=== PATIENT | male | born 1940 | race Caucasian/White ===

== ENCOUNTER → 2019-04-17 | Day surgery (SDC) | payer OTHER ==
--- NOTE | 2019-04-23 19:17 | PATH ---
Cytology Non-Gynecological Report Patient Name: SHAHNAZ FINN [facility]. Rec. #: [id number] /Age/Gender: 1940 (Age: 78) / M Account: [id number] Location: RADIOLOGY INTER Taken: 04/17/2019 Received: 04/17/2019 Reported: 04/23/2019 Physicians: Ishmael Mahan M.D. Specimen(s) Received THYROID FNA Clinical History Left, 1.68 x 1.09 x 1.22 cm Final Diagnosis THYROID, LEFT, FINE NEEDLE ASPIRATION: SATISFACTORY FOR EVALUATION. BETHESDA CLASS II: BENIGN. CYTOLOGIC FINDINGS ARE CONSISTENT WITH A BENIGN FOLLICULAR NODULE. SMALL FOLLICULAR CELLS IN A BACKGROUND OF THIN COLLOID AND FEW LYMPHOCYTES PRESENT. Comment: Presence of lymphocytes raise the possibility of chronic lymphocytic thyroiditis. Suggest clinical/radiological and serologic correlation. Electronically Signed Bere Salter M.D. Gross Description Received are two direct smears, one of which is air-dried and Diff-Quik stained, and one of which is alcohol fixed and Pap stained. Also received is 20 ml of bloody formalin from which one cellblock is prepared.
== END | disposition home or self-care (01) ==
LOC: JRADIR 09:20
PROVIDERS: ATTEND Internal Medicine Endocrinology, Diabetes & Metabolism
PROC: 0G9G3ZX Drainage of Left Thyroid Gland Lobe, Percutaneous Approach, Diagnostic (ICD-10-PCS; principal; 2019-04-17)
DX: E04.1 Nontoxic single thyroid nodule (principal)
CPT/HCPCS: 76942; 88173; 88305-TC

== ENCOUNTER 2019-08-27 07:23 | Day surgery (SDC) | payer OTHER ==
[~2019-08-27 07:23] MED LIST: ACETAMINOPHEN 325 MG TABLET (FP) PO PRN; CYCLOPENTOLATE HCL 1% OPHTH SOLN 2 ML BOTTLE OP SCH; KETOROLAC TROMETHAMINE 0.5% EYE DROP 1 DROP DROPS OP SCH; OFLOXACIN 0.3% OPHTHALMIC SOLUTION 5 ML BOTTLE OP SCH; PHENYLEPHRINE 2.5% OPHTH SOLN 15 ML BOTTLE OP SCH; TROPICAMIDE 1% OPHTH SOLN 15 ML BOTTLE OP SCH
[2019-08-27 07:39] VITALS: BMI 23.6
[2019-08-27] MEDS ORDERED: PHENYLEPHRINE 2.5% OPHTH SOLN 15 ML BOTTLE ONE (07:42)
[2019-08-27] MEDS ORDERED: OFLOXACIN 0.3% OPHTHALMIC SOLUTION 5 ML BOTTLE ONE (07:42)
[2019-08-27] MEDS ORDERED: TROPICAMIDE 1% OPHTH SOLN 15 ML BOTTLE ONE (07:42)
[2019-08-27] MEDS ORDERED: KETOROLAC TROMETHAMINE 0.5% EYE DROP 1 DROP DROPS ONE (07:42)
[2019-08-27] MEDS ORDERED: CYCLOPENTOLATE HCL 1% OPHTH SOLN 2 ML BOTTLE ONE (07:42)
[2019-08-27] MEDS ORDERED: ACETAMINOPHEN 325 MG TABLET (FP) PO PRN (07:49)
[2019-08-27] MEDS ORDERED: TROPICAMIDE 1% OPHTH SOLN 15 ML BOTTLE OD ONE ×3 (08:00→08:15)
[2019-08-27] MEDS ORDERED: PHENYLEPHRINE 2.5% OPHTH SOLN 15 ML BOTTLE OD ONE ×3 (08:00→08:15)
[2019-08-27] MEDS ORDERED: OFLOXACIN 0.3% OPHTHALMIC SOLUTION 5 ML BOTTLE OD ONE ×3 (08:00→08:15)
[2019-08-27] MEDS ORDERED: KETOROLAC TROMETHAMINE 0.5% EYE DROP 1 DROP DROPS OD ONE ×3 (08:00→08:15)
[2019-08-27] MEDS ORDERED: CYCLOPENTOLATE HCL 1% OPHTH SOLN 2 ML BOTTLE OD ONE ×3 (08:00→08:15)
[2019-08-27 08:06] VITALS: PULSE 62
[2019-08-27] MEDS ORDERED: MIDAZOLAM HCL 2 MG/2 ML SINGLE DOSE VIAL ONE (08:12)
[2019-08-27] MEDS ORDERED: DESFLURANE GAS 240 ML BOTTLE IH ONE (08:37)
[2019-08-27] MEDS ORDERED: SEVOFLURANE 250 ML BTL ONE (08:37)
[2019-08-27] MEDS ORDERED: LIDOCAINE HCL/PF 2% SDV 5ML VIAL ONE ×2 (09:16→13:46)
[2019-08-27] MEDS ORDERED: PROPOFOL 20 ML ONE (09:16)
[2019-08-27] MEDS ORDERED: BUPIVACAINE HCL/PF 0.75% 10 ML VIAL PNB ONE (09:23)
[2019-08-27] MEDS ORDERED: LIDOCAINE HCL/PF 2% SDV 5ML VIAL PNB ONE (09:23)
[2019-08-27] MEDS ORDERED: LIDOCAINE HCL 1% PRESERVATIVE FREE - 30ML VIAL IO ONE (09:38)
[2019-08-27] MEDS ORDERED: CHONDROITIN SU A/HYALUR SOD 1 KIT IO ONE (09:39)
[2019-08-27] MEDS ORDERED: EPINEPHrine/PF 1 MG/1 ML (1:1,000) AMPULE SQ ONE (09:40)
[2019-08-27 10:39] VITALS: TEMP 97.5
[2019-08-27] MEDS ORDERED: ACETAMINOPHEN 325 MG TABLET (FP) ONE (10:54)
[2019-08-27] MEDS ORDERED: LIDOCAINE HCL/PF 1% SDV 5ML VIAL ONE (13:46)
[2019-08-27] MEDS ORDERED: TRYPAN BLUE 0.5 ML DISP.SYRIN ONE (13:46)
[2019-08-27] MEDS ORDERED: BUPIVACAINE HCL/PF 0.75% 10 ML VIAL ONE (13:46)
[2019-08-27] MEDS ORDERED: EPINEPHrine/PF 1 MG/1 ML (1:1,000) AMPULE ONE (13:46)
[2019-08-27] MEDS ORDERED: CHONDROITIN SU A/HYALUR SOD 1 KIT ONE (13:53)
--- NOTE | 2019-08-27 13:57 | SPEC ---
DATE OF OPERATION: 08/27/2019 OPERATION: Phacoemulsification of right cataract with posterior chamber intraocular lens implantation, right eye, lens used [id number], 19.0 Diopter power, Serial No. [id number]. PREOPERATIVE DIAGNOSIS: Cataract, right eye. POSTOPERATIVE DIAGNOSIS: Cataract, right eye. SURGEON: Ana Laura Brito M.D. ANESTHESIA: Peribulbar/Modified Van Lint/MAC. COMPLICATIONS: None. PROCEDURE: The patient was brought to the operating room and correctly identified along with the operative site and a correct intraocular lens spear. The patient was then given a peribulbar block under sedation with 5 mL of a 1:1 mixture of 2% Lidocaine and 0.5% Bupivacaine. Two to 3 mL of the same mixture was given as a modified Van Lint block. The eye was then prepped and draped in the usual sterile fashion including 5% Betadine solution in the conjunctival sac and an eyelid drape. An eyelid speculum was then placed into the eye. A paracentesis port was created. Viscoelastic was injected to inflate the anterior chamber. A temporal clear corneal wound was created. A continuous circular capsulorrhexis was performed. The nucleus was then hydro-dissected and removed phacoemulsification via the divide-and- conquer approach. Floppy iris was noted during the nuclear disassemly and removal but care was made to keep the phaco tip in the iris plane. The remaining cortical material was irrigated and aspirated from the eye. Viscoelastic was injected to inflate the capsular bag. The lens was injected into the capsular bag. Viscoelastic was then irrigated and aspirated from the eye. The intraocular lens was noted to be well centered and covered by the anterior capsular border. All wounds were found to be watertight. Topical Vancomycin was given. The eye patch and shield were placed. The patient was discharged from the operating room in stable condition. ANA LAURA BRITO M.D. [id number] MTDD
[2019-08-27 15:38] VITALS: BP 146/73
== END 2019-08-27 11:25 | disposition home or self-care (01) ==
LOC: JASU-SURG 07:23
PROVIDERS: ATTEND Ophthalmology
PROC: 08RJ3JZ Replacement of Right Lens with Synthetic Substitute, Percutaneous Approach (ICD-10-PCS; principal; 2019-08-27 09:00)
DX: H26.9 Unspecified cataract (principal); E11.9 Type 2 diabetes mellitus without complications; Z79.84 Long term (current) use of oral hypoglycemic drugs; I25.10 Atherosclerotic heart disease of native coronary artery without angina pectoris
CPT/HCPCS: 82962

== ENCOUNTER 2020-07-14 14:08 | Inpatient (IN) | payer OTHER ==
[2020-07-14 14:28] VITALS: TEMP 97.3; BMI 24.1
[2020-07-14 14:53] LABS: BASO % 1.6 % (0-2.0); EOS % 3.2 % (0-4.5); HEMATOCRIT 26.2 % (35.4-49); LYMPH % 30.3 % (8-40); MCH 21.4 pg (25.7-33.7); MCHC 30.7 g/dl (32.0-35.9); MEAN CELL VOLUME 69.5 fl (80-96); MEAN PLT VOLUME 9.5 fl (7.5-11.1); MONO % 7.3 % (3.8-10.2); NEUT % 57.6 % (42.8-82.8); PLATELET COUNT 262 K/MM3 (134-434); RBC 3.77 M/mm3 (4.00-5.60); RDW 16.6 % (11.9-15.9); WHITE BLOOD COUNT 4.9 K/mm3 (4.0-10.0)
--- NOTE | 2020-07-14 14:54 | PDOC ---
History of Present Illness - General Chief Complaint: Pain, Acute Stated Complaint: Weakness - History of Present Illness Initial Comments: 80 yo male with PMH of HTN, HLD, DM, CAD, PR (s/p stents), GERD, Hyperthyroidism, VitD, BPH. He has had C4/C5 procedure done (unknown pathology at the moment). Pt BIBEMS from home with a 1 week history of weakness. Family says that he feels lethargic and had a decreased level of activity. He endorses headache, right arm and leg pain/weakness, right arm tingling. He has had a normal appetite, denies nvd and abd pain. He denies fevers, chills, visual disturbance, gait changes, cp, sob, dysuria, hematuria, bloody stool. Pt speaks polish only and translation is done via myself and son. EMS noted stable vitals, 1st degree AV block. 07/14/20 15:07 Past History - Medical History Allergies/Adverse Reactions: Allergies Allergy/AdvReac Type Severity Reaction Status Date / Time No Known Drug Allergies Allergy Verified 08/27/19 07:30 Home Medications: Ambulatory Orders Aspirin [ASA -] 81 mg PO DAILY 06/09/15 Atorvastatin Calcium 80 mg PO DAILY 08/27/19 Metoprolol Succinate 12.5 mg PO BID 08/27/19 Tamsulosin HCl [Flomax -] 0.4 mg PO DAILY 08/27/19 Tramadol HCl 50 mg PO PRN PRN 08/27/19 metFORMIN HCL [Metformin HCl] 500 mg PO DAILY 08/27/19 Ezetimibe 0 mg PO DAILY 07/14/20 Olmesartan Medoxomil [Benicar] 0 mg PO DAILY 07/14/20 Pantoprazole Sodium [Protonix] 0 mg PO DAILY 07/14/20 Vit D3-Vit K/Berberine/Hops [Ostera Tablet] 1 each PO DAILY 07/14/20 Anemia: No Asthma: No Cancer: No Cardiac Disorders: Yes (PR / 2 STENTS) CVA: No COPD: No CHF: No Dementia: No Diabetes: Yes (BORDERLINE) GI Disorders: Yes (COLONOSCOPY/EGD - "bacteria" on antb x 2wks) Disorders: No HTN: Yes Hypercholesterolemia: Yes Liver Disease: Yes (liver enzymes slightly elevted) Seizures: (?x1 after angioplasty 2013) Thyroid Disease: Yes (HYPO.) - Surgical History Abdominal Surgery: No Appendectomy: No Cardiac Surgery: Yes (STENTS X 2.) Cholecystectomy: No Lung Surgery: No Neurologic Surgery: No Orthopedic Surgery: No - Immunization History Immunization Up to Date: No - Psycho-Social/Smoking History Smoking History: Never smoked Have you smoked in the past 12 months: No - Substance Abuse Hx (Audit-C & DAST Scrn) How often the patient has a drink containing alcohol: Never Score: In Men: 4 or > Positive; In Women: 3 or > Positive: 0 Screen Result (Pos requires Nsg. Audit-10AR): Negative In the last yr the pt used illegal drug/Rx for NonMed reason: No Score: Yes response is considered Positive: 0 Screen Result (Positive result requires Nsg. DAST-10): Negative Review of Systems - Review of Systems Constitutional: Yes: Malaise, Weakness. No: Chills, Fever HEENTM: No: Recent change in vision, Double Vision Respiratory: No: Cough, Shortness of Breath Cardiac (ROS): No: Chest Pain, Edema, Irregular Heart Rate, Lightheadedness, Syncope, Chest Tightness ABD/GI: No: Constipated, Diarrhea, Nausea, Vomiting : No: Burning, Dysuria, Flank Pain, Hematuria Musculoskeletal: Yes: Other (right arm weakness/pain/tingling ) Integumentary: No: Bruising, Dryness, Erythema, Lesions Neurological: Yes: Headache, Numbness, Tingling, Weakness. No: Unsteady Gait, Ataxia Psychiatric: No: Anxiety, Depression, Mood Swings Endocrine: No: Intolerance to Cold, Intolerance to Heat *Physical Exam - Vital Signs Last Vital Signs Temp Pulse Resp BP Pulse Ox 97.3 F L 96 H 12 107/53 L 100 07/14/20 14:25 07/14/20 14:25 07/14/20 14:25 07/14/20 14:25 07/14/20 14:25 - Physical Exam General Appearance: Yes: Appropriately Dressed. No: Apparent Distress HEENT: positive: EOMI, LEANDER, Normal Voice Neck: negative: Tender, Rigid Respiratory/Chest: positive: Lungs Clear, Normal Breath Sounds. negative: Respiratory Distress Cardiovascular: positive: Regular Rhythm, Regular Rate, S1, S2. negative: Edema, JVD, Murmur Gastrointestinal/Abdominal: positive: Flat, Soft. negative: Tender Musculoskeletal: positive: Other (right upper extremity weakness). negative: CVA Tenderness Extremity: positive: Normal Inspection, Normal Range of Motion, Other (Pain with right shoulder movement). negative: Coldness, Cyanosis Integumentary: positive: Normal Color, Dry, Warm Neurologic: positive: security screener II-XII NML intact, Fully Oriented, Alert, Normal Mood/Affect ED Treatment Course - LABORATORY CBC & Chemistry Diagram: 07/14/20 14:30 07/14/20 14:30 Medical Decision Making - Medical Decision Making 80 yo male with PMH of HTN, HLD, DM, CAD, PR (s/p stents), GERD, Hyperthyroidism, VitD, BPH. He has had C4/C5 procedure done (unknown pathology at the moment). Pt presents with 1 week hx of weakness, lethargy, right arm pain/numbness/tingling. VS: afebrile, hypotensive 108/67 PE: right arm pain/tingling/weakness Heart score =5 EKG: sinus rhythm, rate 63, normal axis, prolonged pr (226, 1st degree av block), normal QRS (76), normal QTc (425) Labs: - Microcytic Anemia (Hb 8.0, baseline ~11-12) (MCV 68) - ordered type and screen - not currently transfusing - stool occult blood test, negative, however very little stool was in the rectal vault - Creatinine 1.7 (at baseline) - TSH 0.16, Free T4 1.26 - Troponin negative - UA/UC pending - Covid pending Images - CXR: no acute chest pathology - CT Head: no acute intracranial pathology Impression: symptomatic microcytic anemia of unknown origin 07/14/20 17:21 07/14/20 18:09 Discharge - Discharge Information Problems reviewed: Yes Clinical Impression/Diagnosis: Weakness Anemia Qualifiers: Anemia type: unspecified type Qualified Code(s): D64.9 - Anemia, unspecified - Admission Yes - Follow up/Referral Referrals: Donaldo Ko MD [Primary Care Provider] - - Patient Discharge Instructions - Post Discharge Activity
[2020-07-14 15:01] LABS: INR 0.98 (0.83-1.09); PROTHROMBIN TIME (PATIENT) 11.9 SEC (9.7-13.0)
[2020-07-14 15:04] LABS: ACTIVATED PTT 27.6 SECONDS (25.2-36.5)
[2020-07-14 15:11] LABS: CHLORIDE 107 mmol/L (98-107); POTASSIUM 4.6 mmol/L (3.5-5.1); SODIUM 138 mmol/L (136-145)
[2020-07-14 15:13] LABS: ALBUMIN 3.6 g/dl (3.4-5.0); ANION GAP 6 MMOL/L (8-16); BLOOD UREA NITROGEN 25.9 mg/dL (7-18); CALCIUM 9.3 mg/dL (8.5-10.1); CO2 25 mmol/L (21-32); GLUCOSE,RANDOM 163 mg/dL (74-106)
[2020-07-14 15:14] LABS: ANISOCYTOSIS 3+; MACROCYTOSIS 1+; PLATELET ESTIMATE NORMAL; TEAR DROP CELLS 1+
[2020-07-14 15:16] LABS: SGOT/AST 18 U/L (15-37); SGPT/ALT 26 U/L (13-61)
[2020-07-14 15:17] LABS: CREATININE 1.7 mg/dL (0.55-1.3)
[2020-07-14 15:18] LABS: BILIRUBIN,TOTAL 0.3 mg/dL (0.2-1); TOT PROT 7.2 g/dl (6.4-8.2)
[2020-07-14 15:19] LABS: ALK PHOS 44 U/L (45-117)
[2020-07-14 15:21] LABS: N-TERMINAL BNP 230.4 pg/ml (5-450)
[2020-07-14 16:53] VITALS: BP 108/67; PULSE 60
--- NOTE | 2020-07-14 17:06 | PDOC ---
Documentation entered by Oliverio Malone SCRIBE, acting as scribe for Zarina Rodriguez MD. Zarina Rodriguez MD: This documentation has been prepared by the scribe, Oliverio Malone SCRIBE, under my direction and personally reviewed by me in its entirety. I confirm that the documentation accurately reflects all work, treatment, procedures, and medical decision making performed by me. Attending Attestation - Resident Resident Name: Kenny Santos - ED Attending Attestation I have performed the following: I have examined & evaluated the patient, The case was reviewed & discussed with the resident, I agree w/resident's findings & plan, Exceptions are as noted - HPI HPI: 07/14/20 15:19 The patient is an 80 year old male with a significant past medical history of CAD status post FL with 2 stents in June 2014, C4/C5 procedure, DM, BPH, hyperthyroidism, GERD, HTN, and HLD who presents to the emergency department, [facility], for evaluation of weakness that began one week ago. The patient reports ri ght arm and leg pain similar to his previous neck/arm/leg pain but hasn't had this pain for the past 3 years until 1 week ago. As per patients family, the patient ismore tired and showed a decrease in activity. EMS notes 1st degree AV block. Denies change in appetite. The patient denies chest/abdominal/back pain, cough, and shortness of breath. Denies fever, chills, nausea, vomiting, and/or any GI symptoms. Denies any symptoms. Denies any other symptoms. Allergies: NKDA Social Hx: None reported Surgical Hx: stents x2 (06/2014), C4/C5 procedure PCP: Dr. Mindy Ko 07/14/20 17:01 07/14/20 17:05 - Physicial Exam PE: 07/14/20 17:02 General: well appearing HEENT: NCAT, MMM Neck: supple, FROM Chest: CTAB, good air entry, no wheezes rales or rhonchi CVS: + s1 s2, RRR Extremities: warm and well perfused, strength preserved, no bony tenderness Neuro: awake, alert, responds appropriately to questions, speech fluent, face symmetric, no focal deficits - Medical Decision Making 07/14/20 17:03 80 yo M with increased fatigue x1 week and pain to R arm and leg similar to previous to similar pain in the past however given report of fatigue and weakness will r/o new occult cervical fx or infectious etiology. Also possible anemia vs. ACS. Plan: -labs -urine -cxr -CT head -CT c-spine -pain control as needed -reassess This clinical encounter is taking place during a federal and state health care emergency attributable to the novel Bailey Virus pandemic. The [employer] of the Department of Health and Human Services has declared, pursuant to the Public Health Service Act 319F-3 (42 U.S.C. 247d-6d), that a covered persons activities related to medical countermeasures against COVID-19 will be immune from liability under Federal and State law. Pt. found to be anemic of unclear etiology. Will admit for anemia. Discharge - Discharge Information Problems reviewed: Yes Clinical Impression/Diagnosis: Weakness Anemia Qualifiers: Anemia type: unspecified type Qualified Code(s): D64.9 - Anemia, unspecified Condition: Stable Disposition: AGAINST MEDICAL ADVICE - Follow up/Referral - Patient Discharge Instructions - Post Discharge Activity
--- NOTE | 2020-07-14 17:40 | EKG ---
Test Reason : Blood Pressure : / mmHG Vent. Rate : 063 BPM Atrial Rate : 063 BPM P-R Int : 226 ms QRS Dur : 076 ms QT Int : 416 ms P-R-T Axes : 056 061 094 degrees QTc Int : 425 ms SINUS RHYTHM WITH 1ST DEGREE A-V BLOCK LEFT ATRIAL ENLARGEMENT NONSPECIFIC T WAVE ABNORMALITY ABNORMAL ECG WHEN COMPARED WITH ECG OF 09-JUN-2015 14:54, NO SIGNIFICANT CHANGE WAS FOUND Confirmed by MD HALEY, VADIM ([id number]) on 07/14/2020 5:39:56 PM Referred By: Confirmed By:VADIM DE LEON MD
[2020-07-14] MEDS ORDERED: traMADol HCL 50 MG TABLET PO PRN (18:24)
[2020-07-14] MEDS ORDERED: ACETAMINOPHEN 325 MG TABLET (FP) PO ONE (18:26)
[2020-07-14] MEDS ORDERED: ACETAMINOPHEN 325 MG TABLET (FP) ONE (18:45)
--- NOTE | 2020-07-14 18:57 | HP ---
CHIEF COMPLAINT: fatigue, lethargy PCP: Dr. Donaldo Ko HISTORY OF PRESENT ILLNESS: Patient is an 80 year old male with past medical history of HTN, HLD, DM, CAD, ND (s/p stents), GERD, Hyperthyroidism, VitD, BPH, presented to the ED due to 1 week history of fatigue and lethargy. Patient reported he started feeling sleepy and tired with decreased level of activity that started gradually about a week ago. He also endorses headache, right arm pain, weakness and tingling, that was similar to his previous neck/arm/leg pain where he underwent C4/C5 surgery at [facility] about 4 years ago. He has not experienced this pain since the surgery, until a week ago. As per patient's son in law, patient is noted to be more tired and lethargic, showing decreased activity. Patient denies any fevers, chills, headache, nausea, vomtiing, chest pain, shortness of breath, abdominal pain, diarrhea, urinary symptoms. ER course was notable for: (1)Head CT - no acute intracranial pathology (2)Cervical cT - multilevel central canal stenosis. Possible left posterolateral C2-C3 disc herniation (3)Hgb 8 Recent Travel: denies PAST MEDICAL HISTORY: HTN HLD DM CAD ND (s/p stents) GERD Hyperthyroidism VitD BPH PAST SURGICAL HISTORY: cardiac stents C4-C5 procedure Social History: Smoking: denies Alcohol:denies Drugs: denies Family History: Denies hx of heart disease, stroke, htn Allergies No Known Drug Allergies Allergy (Verified 08/27/19 07:30) HOME MEDICATIONS: Home Medications Medication Instructions Recorded Aspirin [ASA -] 81 mg PO DAILY 06/09/15 Atorvastatin Calcium 80 mg PO DAILY 08/27/19 Metoprolol Succinate 12.5 mg PO BID 08/27/19 Tamsulosin HCl [Flomax -] 0.4 mg PO DAILY 08/27/19 Tramadol HCl 50 mg PO PRN PRN 08/27/19 metFORMIN HCL [Metformin HCl] 500 mg PO DAILY 08/27/19 Ezetimibe 0 mg PO DAILY 07/14/20 Olmesartan Medoxomil [Benicar] 0 mg PO DAILY 07/14/20 Pantoprazole Sodium [Protonix] 0 mg PO DAILY 07/14/20 Vit D3-Vit K/Berberine/Hops 1 each PO DAILY 07/14/20 [Ostera Tablet] REVIEW OF SYSTEMS CONSTITUTIONAL: generalized weakness, malaise Absent: fever, chills, diaphoresis, loss of appetite, weight change HEENT: Absent: rhinorrhea, nasal congestion, throat pain, throat swelling, difficulty swallowing, mouth swelling, ear pain, eye pain, visual changes CARDIOVASCULAR: Absent: chest pain, syncope, palpitations, irregular heart rate, lightheadedness, peripheral edema RESPIRATORY: Absent: cough, shortness of breath, dyspnea with exertion, orthopnea, wheezing, stridor, hemoptysis GASTROINTESTINAL: Absent: abdominal pain, abdominal distension, nausea, vomiting, diarrhea, constipation, melena, hematochezia GENITOURINARY: Absent: dysuria, frequency, urgency, hesitancy, hematuria, flank pain, genital pain MUSCULOSKELETAL: Absent: myalgia, arthralgia, joint swelling, back pain, neck pain SKIN: Absent: rash, itching, pallor HEMATOLOGIC/IMMUNOLOGIC: Absent: easy bleeding, easy bruising, lymphadenopathy, frequent infections ENDOCRINE: Absent: unexplained weight gain, unexplained weight loss, heat intolerance, cold intolerance NEUROLOGIC: Absent: headache, focal weakness or paresthesias, dizziness, unsteady gait, seizure, mental status changes, bladder or bowel incontinence PSYCHIATRIC: Absent: anxiety, depression, suicidal or homicidal ideation, hallucinations. PHYSICAL EXAMINATION Vital Signs - 24 hr 07/14/20 07/14/20 14:25 16:52 Temperature 97.3 F L Pulse Rate 96 H Pulse Rate [ 60 Right Radial] Respiratory 12 17 Rate Blood Pressure 107/53 L Blood Pressure 108/67 [Right Arm] O2 Sat by Pulse 100 98 Oximetry (%) GENERAL: Awake, alert, and fully oriented, in no acute distress. HEAD: Normal with no signs of trauma. EYES: PERRLA,EOMI sclera anicteric, conjunctiva clear. NECK: Normal range of motion, supple LUNGS: Breath sounds equal, clear to auscultation bilaterally. HEART: Regular rate and rhythm, normal S1 and S2 without murmur, rub or gallop. ABDOMEN: Soft, nontender, not distended, normoactive bowel sounds LOWER EXTREMITIES: 2+ pulses, warm, well-perfused. No peripheral edema. NEUROLOGICAL: Cranial nerves II-XII grossly intact. Normal speech. PSYCHIATRIC: Cooperative. Good eye contact. Appropriate mood and affect. SKIN: Warm, dry, normal turgor. Laboratory Results - last 24 hr 07/14/20 07/14/20 07/14/20 14:30 14:30 14:30 WBC 4.9 RBC 3.77 L Hgb 8.0 L Hct 26.2 L D MCV 69.5 L MCH 21.4 L D MCHC 30.7 L RDW 16.6 H Plt Count 262 D MPV 9.5 Absolute Neuts (auto) 2.8 Neutrophils % 57.6 D Lymphocytes % 30.3 D Monocytes % 7.3 Eosinophils % 3.2 Basophils % 1.6 Nucleated RBC % 0 Hypochromia 1+ Platelet Estimate Normal Polychromasia 1+ Poikilocytosis 2+ Anisocytosis 3+ Microcytosis 3+ Macrocytosis 1+ Tear Drop Cells 1+ Acanthocytes (Spur) 2+ Schistocytes 1+ PT with INR 11.90 INR 0.98 PTT (Actin FS) 27.6 Sodium 138 Potassium 4.6 Chloride 107 Carbon Dioxide 25 Anion Gap 6 L BUN 25.9 H Creatinine 1.7 H Est GFR (CKD-EPI)AfAm 43.18 Est GFR (CKD-EPI)NonAf 37.26 Random Glucose 163 H Calcium 9.3 Total Bilirubin 0.3 AST 18 ALT 26 Alkaline Phosphatase 44 L Creatine Kinase 237 Creatine Kinase Index 1.7 CK-MB (CK-2) 4.2 H Troponin I < 0.02 B-Natriuretic Peptide 230.4 Total Protein 7.2 Albumin 3.6 TSH 0.16 L D Free T4 1.26 H Stool Occult Blood Blood Type Antibody Screen 07/14/20 07/14/20 15:09 16:48 WBC RBC Hgb Hct MCV MCH MCHC RDW Plt Count MPV Absolute Neuts (auto) Neutrophils % Lymphocytes % Monocytes % Eosinophils % Basophils % Nucleated RBC % Hypochromia Platelet Estimate Polychromasia Poikilocytosis Anisocytosis Microcytosis Macrocytosis Tear Drop Cells Acanthocytes (Spur) Schistocytes PT with INR INR PTT (Actin FS) Sodium Potassium Chloride Carbon Dioxide Anion Gap BUN Creatinine Est GFR (CKD-EPI)AfAm Est GFR (CKD-EPI)NonAf Random Glucose Calcium Total Bilirubin AST ALT Alkaline Phosphatase Creatine Kinase Creatine Kinase Index CK-MB (CK-2) Troponin I B-Natriuretic Peptide Total Protein Albumin TSH Free T4 Stool Occult Blood Negative Blood Type B POSITIVE Antibody Screen Negative ASSESSMENT/PLAN: Patient is an 80 year old male with past medical history of HTN, HLD, DM, CAD, ND (s/p stents), GERD, Hyperthyroidism, VitD, BPH, presented to the ED due to 1 week history of fatigue and lethargy. #Fatigue likely 2/2 Anemia -H/H 05/19, MCV 69 (baseline hgb 11) -possibly multifactorial, will order basic anemia work up including iron studies, retic count -may be ACD to 2/2 CKD -stool occult pending -patient had colonoscopy with DR. Lau in the past where polyps were removed -GI (Dr. Lau) consulted. Recs appreciated. -monitor CBC, transfuse prn to keep Hgb >8 given cardiac hx - #Right arm/leg pain likely 2/2 Cervical radiculopathy -Cervical cT - multilevel central canal stenosis. Possible left posterolateral C2-C3 disc herniation -will start Neurontin tid -tramadol prn for pain -Neurosurgery consulted. Recs appreciated. #HTN -Continue Metoprolol and Valsartan #HLD -continue statin #DM -hold home meds -insulin sliding scale -BGM ACHS #CAD -will hold ASA for now -continue statin #FEN -Not on any standing fluids -Electrolytes wnl, routine bmp monitoring -Diabetic/sodium restricted diet #PRophylaxis -SCDs bilaterally #Disposition -full code -admit to med surg Family Medical History Family History: As Documented Visit type - Medication Review Med list reviewed for High Risk Meds patients 65 and older: Yes - Emergency Visit Emergency Visit: Yes ED Registration Date: 07/14/20 Care time: The patient presented to the Emergency Department on the above date and was hospitalized for further evaluation of their emergent condition. - New Patient This patient is new to me today: Yes Date on this admission: 07/14/20 - Critical Care Critical Care patient: No ATTENDING PHYSICIAN STATEMENT I saw and evaluated the patient. I reviewed the resident's note and discussed the case with the resident. I agree with the resident's findings and plan as documented. SUBJECTIVE: OBJECTIVE: ASSESSMENT AND PLAN:
[2020-07-14 19:06] LABS: URINE APPEARANCE CLEAR; URINE BILIRUBIN NEGATIVE (NEGATIVE); URINE COLOR YELLOW; URINE GLUCOSE (UA) 2+ (NEGATIVE); URINE KETONE NEGATIVE (NEGATIVE); URINE LEUK ESTERASE NEGATIVE (NEGATIVE); URINE NITRITE NEGATIVE (NEGATIVE); URINE PROTEIN NEGATIVE (NEGATIVE); URINE UROBILINOGEN 0.2 mg/dL (0.2-1.0)
[2020-07-14] MEDS ORDERED: GABAPENTIN 100 MG CAPSULE PO SCH (22:00)
[2020-07-14] MEDS ORDERED: ATORVASTATIN CA 80 MG TABLET (FP) PO SCH (22:00)
[2020-07-14] MEDS ORDERED: INSULIN SLIDING SCALE (NOVOLOG) 1 VIAL SQ SCH (22:00)
[2020-07-14] MEDS ORDERED: metoPROLOL SUCCINATE 25 MG TAB.SR.24H (FP) PO SCH (22:00)
--- NOTE | 2020-07-14 23:52 | PN ---
Teaching Attending Note Name of Resident: Virgie Russell ATTENDING PHYSICIAN STATEMENT I saw and evaluated the patient. I reviewed the resident's note and discussed the case with the resident. I agree with the resident's findings and plan as documented. SUBJECTIVE: Patient seen and examined at bedside, endorses acute on chronic RUE weakness 2/2 C-radiculopathy, imaging reviewed w/ NSG team recommending MRI of C spine for further imaging of spinal cord compression. VSS. OBJECTIVE: GA AAox3, Speaks French, NAD, pale appearing HEENT NC/AT, pale conjunctiva, neck supple, dry MM, no C spine tenderness Chest CTAB, no crackles or wheezing CVS S1, s2+, RRR Abd Soft, NT, ND, BS+ Ext no LE edema, no calf tenderness Neuro 4/5 strength RUE, 5/5 LUE/and b/l Lower extremities, sensation intact and equal on face/UE/LE Vital Signs (72 hours) 07/14/20 07/14/20 14:25 16:52 Temperature 97.3 F L Pulse Rate 96 H Pulse Rate [ 60 Right Radial] Respiratory 12 17 Rate Blood Pressure 107/53 L Blood Pressure 108/67 [Right Arm] O2 Sat by Pulse 100 98 Oximetry (%) Laboratory Results - last 24 hr 07/14/20 07/14/20 07/14/20 14:30 14:30 14:30 WBC 4.9 RBC 3.77 L Hgb 8.0 L Hct 26.2 L D MCV 69.5 L MCH 21.4 L D MCHC 30.7 L RDW 16.6 H Plt Count 262 D MPV 9.5 Absolute Neuts (auto) 2.8 Neutrophils % 57.6 D Lymphocytes % 30.3 D Monocytes % 7.3 Eosinophils % 3.2 Basophils % 1.6 Nucleated RBC % 0 Hypochromia 1+ Platelet Estimate Normal Polychromasia 1+ Poikilocytosis 2+ Anisocytosis 3+ Microcytosis 3+ Macrocytosis 1+ Tear Drop Cells 1+ Acanthocytes (Spur) 2+ Schistocytes 1+ PT with INR 11.90 INR 0.98 PTT (Actin FS) 27.6 Sodium 138 Potassium 4.6 Chloride 107 Carbon Dioxide 25 Anion Gap 6 L BUN 25.9 H Creatinine 1.7 H Est GFR (CKD-EPI)AfAm 43.18 Est GFR (CKD-EPI)NonAf 37.26 Random Glucose 163 H Calcium 9.3 Iron 13 L TIBC 452 H Iron Saturation 2 L Unsaturated IBC 439 H Total Bilirubin 0.3 AST 18 ALT 26 Alkaline Phosphatase 44 L Creatine Kinase 237 Creatine Kinase Index 1.7 CK-MB (CK-2) 4.2 H Troponin I < 0.02 B-Natriuretic Peptide 230.4 Total Protein 7.2 Albumin 3.6 TSH 0.16 L D Free T4 1.26 H Urine Color Urine Appearance Urine pH Ur Specific [place] Urine Protein Urine Glucose (UA) Urine Ketones Urine Blood Urine Nitrite Urine Bilirubin Urine Urobilinogen Ur Leukocyte Esterase Stool Occult Blood Blood Type Antibody Screen 07/14/20 07/14/20 07/14/20 15:09 16:48 17:30 WBC RBC Hgb Hct MCV MCH MCHC RDW Plt Count MPV Absolute Neuts (auto) Neutrophils % Lymphocytes % Monocytes % Eosinophils % Basophils % Nucleated RBC % Hypochromia Platelet Estimate Polychromasia Poikilocytosis Anisocytosis Microcytosis Macrocytosis Tear Drop Cells Acanthocytes (Spur) Schistocytes PT with INR INR PTT (Actin FS) Sodium Potassium Chloride Carbon Dioxide Anion Gap BUN Creatinine Est GFR (CKD-EPI)AfAm Est GFR (CKD-EPI)NonAf Random Glucose Calcium Iron TIBC Iron Saturation Unsaturated IBC Total Bilirubin AST ALT Alkaline Phosphatase Creatine Kinase Creatine Kinase Index CK-MB (CK-2) Troponin I B-Natriuretic Peptide Total Protein Albumin TSH Free T4 Urine Color Yellow Urine Appearance Clear Urine pH 5.0 Ur Specific [place] 1.015 Urine Protein Negative Urine Glucose (UA) 2+ H Urine Ketones Negative Urine Blood Negative Urine Nitrite Negative Urine Bilirubin Negative Urine Urobilinogen 0.2 Ur Leukocyte Esterase Negative Stool Occult Blood Negative Blood Type B POSITIVE Antibody Screen Negative Home Medications Medication Instructions Recorded Aspirin [ASA -] 81 mg PO DAILY 06/09/15 Atorvastatin Calcium 80 mg PO DAILY 08/27/19 Metoprolol Succinate 12.5 mg PO BID 08/27/19 Tamsulosin HCl [Flomax -] 0.4 mg PO DAILY 08/27/19 Tramadol HCl 50 mg PO PRN PRN 08/27/19 metFORMIN HCL [Metformin HCl] 500 mg PO DAILY 08/27/19 Ezetimibe 0 mg PO DAILY 07/14/20 Olmesartan Medoxomil [Benicar] 0 mg PO DAILY 07/14/20 Pantoprazole Sodium [Protonix] 0 mg PO DAILY 07/14/20 Vit D3-Vit K/Berberine/Hops 1 each PO DAILY 07/14/20 [Ostera Tablet] ASSESSMENT AND PLAN: 80 M Cervical radiculopathy with moderate cord compression HTN HLD CAD s/p stenting 2015 Chronic neuropathy T2DM GERD Anemia r/o GIB Plan: Obtain MRI of C spine for further imaging of cord compression (per NSG team) Supplement PPI, avoid ASA/blood thinners, will need GI evaluation for EGD/colonoscopy for evaluation of anemia Send TIBC/iron panel Cont. BB/statin PT evaluation NSG consulted GI consulted Trend CBC DVT ppx: Ambulation/SCD for now
--- NOTE | 2020-07-15 07:20 | PN ---
Progress Note, Physician History of Present Illness: 1 year old male with past medical history of HTN, HLD, DM, CAD, MT (s/p stents), GERD, Hyperthyroidism, VitD, BPH, presented to the ED due to 1 week history of fatigue and lethargy. - Current Medication List Current Medications: Active Medications Atorvastatin Calcium (Lipitor -) 80 mg PO HS DANA Gabapentin (Neurontin -) 100 mg PO TID DANA Insulin Aspart (Novolog Vial Sliding Scale -) 1 vial SQ ACHS DANA; Protocol Metoprolol Succinate (Toprol Xl -) 12.5 mg PO BID DANA Pantoprazole Sodium (Protonix Iv) 40 mg IVPUSH DAILY DANA Tamsulosin HCl (Flomax -) 0.4 mg PO DAILY@0830 DANA Tramadol HCl (Ultram -) 50 mg PO Q6H PRN PRN Reason: PAIN LEVEL 7-10 Valsartan (Diovan -) 160 mg PO DAILY DANA - Objective Vital Signs: Vital Signs Temperature 97.3 F L 07/14/20 14:25 Pulse Rate 60 07/14/20 16:52 Respiratory Rate 17 07/14/20 16:52 Blood Pressure 108/67 07/14/20 16:52 O2 Sat by Pulse Oximetry (%) 98 07/14/20 16:52 Labs: CBC, BMP 07/14/20 14:30 07/14/20 14:30 INR, PTT INR 0.98 (0.83-1.09) 07/14/20 14:30 - ....Imaging Chest X-ray: Report Reviewed (CXR: no effusion/infiltrates) Cat Scan: Report Reviewed (Cervical: C2-3 disc herniation HCT no acute pathology) Problem List - Problems (1) HTN (hypertension) Code(s): I10 - ESSENTIAL (PRIMARY) HYPERTENSION (2) HLD (hyperlipidemia) Code(s): E78.5 - HYPERLIPIDEMIA, UNSPECIFIED (3) Diabetes Code(s): E11.9 - TYPE 2 DIABETES MELLITUS WITHOUT COMPLICATIONS (4) CAD (coronary artery disease) Code(s): I25.10 - ATHSCL HEART DISEASE OF [place] CORONARY ARTERY W/O ANG PCTRS (5) Hx of heart artery stent Code(s): Z95.5 - PRESENCE OF CORONARY ANGIOPLASTY IMPLANT AND GRAFT (6) GERD (gastroesophageal reflux disease) Code(s): K21.9 - GASTRO-ESOPHAGEAL REFLUX DISEASE WITHOUT ESOPHAGITIS (7) Hyperthyroidism Code(s): E05.90 - THYROTOXICOSIS, UNSP WITHOUT THYROTOXIC CRISIS OR STORM (8) BPH (benign prostatic hyperplasia) Code(s): N40.0 - BENIGN PROSTATIC HYPERPLASIA WITHOUT LOWER URINRY TRACT SYMP (9) Lethargy Code(s): R53.83 - OTHER FATIGUE (10) Prophylactic measure Code(s): Z29.9 - ENCOUNTER FOR PROPHYLACTIC MEASURES, UNSPECIFIED (11) Suspected COVID-19 virus infection Code(s): Z20.828 - CONTACT W AND EXPOSURE TO OTH VIRAL COMMUNICABLE DISEASES (12) Cervical radiculopathy Code(s): M54.12 - RADICULOPATHY, CERVICAL REGION (13) Anemia Code(s): D64.9 - ANEMIA, UNSPECIFIED Qualifiers: Anemia type: unspecified type Qualified Code(s): D64.9 - Anemia, unspecified
[2020-07-15] MEDS ORDERED: TAMSULOSIN HCL 0.4 MG CAP PO SCH (08:30)
[2020-07-15 09:10] LABS: IRON SERUM 13 ug/dL (50-175)
[2020-07-15 09:11] LABS: TOTAL IRON BINDING CAPACITY 452 ug/dL (250-450)
[2020-07-15] MEDS ORDERED: PANTOPRAZOLE SODIUM 40 MG VIAL IVPUSH SCH (10:00)
[2020-07-15] MEDS ORDERED: VALSARTAN 160 MG TABLET PO SCH (10:00)
--- NOTE | 2020-07-15 16:14 | HOSP ---
Subjective - Review of Symptoms Events since last encounter: Patient signed out AMA last night prior to being seen by senior grant writer Physical Examination Vital Signs: Vital Signs Temperature 97.3 F L 07/14/20 14:25 Pulse Rate 60 07/14/20 16:52 Respiratory Rate 17 07/14/20 16:52 Blood Pressure 108/67 07/14/20 16:52 O2 Sat by Pulse Oximetry (%) 98 07/14/20 16:52 Labs: CBC, BMP 07/14/20 14:30 07/14/20 14:30
== END 2020-07-14 22:30 | disposition left against medical advice (07) | DRG 663 ==
LOC: JER 14:08 → JERBED 17:41
PROVIDERS: ATTEND Nurse Practitioner Acute Care
DX: D50.9 Iron deficiency anemia, unspecified (principal); E05.90 Thyrotoxicosis, unspecified without thyrotoxic crisis or storm; N40.0 Benign prostatic hyperplasia without lower urinary tract symptoms; R53.83 Other fatigue; I25.10 Atherosclerotic heart disease of native coronary artery without angina pectoris; R51.9 Headache, unspecified; M54.12 Radiculopathy, cervical region; R53.1 Weakness; E11.9 Type 2 diabetes mellitus without complications; I95.9 Hypotension, unspecified; Z95.5 Presence of coronary angioplasty implant and graft; K21.9 Gastro-esophageal reflux disease without esophagitis; E78.5 Hyperlipidemia, unspecified; I10 Essential (primary) hypertension
CPT/HCPCS: 36415; 70450-TC; 71045-TC-FY; 72125-TC; 80053; 81003; 82272; 82550; 82553; 83540; 83550; 83880; 84439; 84443; 84484; 85025; 85610; 85730; 86850; 86900; 86901; 87086; 93005; 93010; 99285-25; C9803; U0003

== ENCOUNTER 2022-08-20 02:56 | Inpatient (IN) | payer OTHER ==
[2022-08-20 03:47] VITALS: BMI 24.9
[2022-08-20 04:24] LABS: BASO % 1.2 % (0-2.0); EOS % 3.3 % (0-4.5); HEMATOCRIT 21.3 % (35.4-49); LYMPH % 16.3 % (8-40); MCHC 30.2 g/dl (32.0-35.9); MEAN CELL VOLUME 61.6 fl (80-96); NEUT % 72.2 % (42.8-82.8); PLATELET COUNT 360 10^3/uL (134-434); RBC 3.45 M/mm3 (4.00-5.60); RDW 17.5 % (11.9-15.9); WHITE BLOOD COUNT 6.6 K/mm3 (4.0-10.0)
[2022-08-20 04:27] LABS: HEMOGLOBIN 6.4 GM/dL (11.7-16.9); MCH 18.6 pg (25.7-33.7)
[2022-08-20 04:36] LABS: BLOOD UREA NITROGEN 32.6 mg/dL (7-18); CALCIUM 8.9 mg/dL (8.5-10.1)
[2022-08-20 04:37] LABS: ALBUMIN 3.5 g/dl (3.4-5.0)
[2022-08-20 04:39] LABS: CREATININE 2.1 mg/dL (0.55-1.3)
[2022-08-20 04:41] LABS: BILIRUBIN,TOTAL 0.2 mg/dL (0.2-1)
[2022-08-20] MEDS ORDERED: FUROSEMIDE 40 MG/4 ML INJECTABLE VIAL IVPUSH ONE (16:04)
[2022-08-20] MEDS ORDERED: PANTOPRAZOLE SODIUM 40 MG VIAL ONE (16:45)
[2022-08-20] MEDS ORDERED: FUROSEMIDE 40 MG/4 ML INJECTABLE VIAL ONE (16:45)
[2022-08-20] MEDS: PANTOPRAZOLE SODIUM 40 MG VIAL IVPUSH SCH (16:57)
[2022-08-20 20:35] LABS: PH,URINE 5.5 (5.0-8.0); URINE APPEARANCE CLEAR; URINE BILIRUBIN NEGATIVE (NEGATIVE); URINE COLOR YELLOW; URINE GLUCOSE (UA) NEGATIVE (NEGATIVE); URINE KETONE NEGATIVE (NEGATIVE); URINE LEUK ESTERASE NEGATIVE (NEGATIVE); URINE NITRITE NEGATIVE (NEGATIVE); URINE PROTEIN NEGATIVE (NEGATIVE); URINE UROBILINOGEN 0.2 mg/dL (0.2-1.0)
[2022-08-20] MEDS ORDERED: ATORVASTATIN CA 80 MG TABLET (FP) PO SCH (22:00)
[2022-08-21] MEDS ORDERED: ATORVASTATIN CA 80 MG TABLET (FP) ONE (00:38)
[2022-08-21] MEDS ORDERED: TAMSULOSIN HCL 0.4 MG CAP PO SCH (08:30)
[2022-08-21 09:24] LABS: HEMATOCRIT 27.1 % (35.4-49); HEMOGLOBIN 8.5 GM/dL (11.7-16.9); MCH 20.6 pg (25.7-33.7); MCHC 31.2 g/dl (32.0-35.9); MEAN PLT VOLUME 9.1 fl (7.5-11.1); PLATELET COUNT 372 10^3/uL (134-434); RBC 4.11 M/mm3 (4.00-5.60); WHITE BLOOD COUNT 7.5 K/mm3 (4.0-10.0)
[2022-08-21 09:47] LABS: SODIUM 142 mmol/L (136-145)
[2022-08-21 09:48] LABS: CALCIUM 9.5 mg/dL (8.5-10.1)
[2022-08-21 09:49] LABS: BLOOD UREA NITROGEN 26.4 mg/dL (7-18); CO2 23 mmol/L (21-32); GLUCOSE,RANDOM 88 mg/dL (74-106)
[2022-08-21 09:52] LABS: CREATININE 1.8 mg/dL (0.55-1.3)
[2022-08-21 09:54] LABS: ANION GAP 7 MMOL/L (8-16); CHLORIDE 112 mmol/L (98-107)
[2022-08-21] MEDS ORDERED: PANTOPRAZOLE SODIUM 40 MG/100 ML BAG IVPB ONE (10:00)
[2022-08-21] MEDS ORDERED: TAMSULOSIN HCL 0.4 MG CAP ONE (10:00)
[2022-08-21] MEDS: PANTOPRAZOLE SODIUM 40 MG VIAL IVPUSH SCH (10:13)
[2022-08-21] MEDS ORDERED: IRON SUCROSE INJECTION 200 MG in SODIUM CHLORIDE 90 ML IVPB ONE (10:30)
[2022-08-21 15:08] VITALS: RESP 18; TEMP 98.2
[2022-08-21 16:49] VITALS: BP 168/76; PULSE 81
== END 2022-08-21 16:52 | disposition home or self-care (01) | DRG 309 ==
LOC: JER 02:56 → JERBED 09:53
PROVIDERS: ADMIT Internal Medicine; ATTEND Internal Medicine
PROC: 30233N1 Transfusion of Nonautologous Red Blood Cells into Peripheral Vein, Percutaneous Approach (ICD-10-PCS; principal; 2022-08-20)
DX: I48.91 Unspecified atrial fibrillation (principal); K92.2 Gastrointestinal hemorrhage, unspecified; I25.10 Atherosclerotic heart disease of native coronary artery without angina pectoris; E78.5 Hyperlipidemia, unspecified; K21.9 Gastro-esophageal reflux disease without esophagitis; N40.0 Benign prostatic hyperplasia without lower urinary tract symptoms; R77.8 Other specified abnormalities of plasma proteins; E05.90 Thyrotoxicosis, unspecified without thyrotoxic crisis or storm; E55.9 Vitamin D deficiency, unspecified; D50.9 Iron deficiency anemia, unspecified; R51.9 Headache, unspecified; I25.2 Old myocardial infarction; I12.9 Hypertensive chronic kidney disease with stage 1 through stage 4 chronic kidney disease, or unspecified chronic kidney disease; E11.22 Type 2 diabetes mellitus with diabetic chronic kidney disease; N18.9 Chronic kidney disease, unspecified; Z95.5 Presence of coronary angioplasty implant and graft
CPT/HCPCS: 0241U-QW; 36415; 36430; 70450-TC; 71045-TC-FY; 80048; 80053; 81003; 82272; 82550; 82553; 82728; 82962; 83540; 83550; 83690; 84484; 85025; 85027; 86850; 86900; 86901; 86922; 93005; 93010; 93306-TC; 99285-25; J1756; P9058